=== PATIENT | male | born 1975 | race Caucasian/White ===

== ENCOUNTER 2017-10-29 13:53 | Emergency (ER) | payer BC, OTHER ==
[~2017-10-29 13:53] MED LIST: ISOVUE-370 76%-LOCM 1 ML ONE
[2017-10-29] MEDS ORDERED: Ondansetron HCl/PF 4 MG/2 ML Vial ONE (14:01)
[2017-10-29 14:14] LABS: #Basophils 0.1 thou/uL (0.0-0.2); #Eosinphils 0.1 thou/uL (0.0-0.7); #Lymphocytes 2.3 thou/uL (1.20-3.40); #Monocytes 0.6 thou/uL (0.11-0.59); #Neutrophils 11.4 thou/uL (1.40-6.50); %Basophils 0.8 % (0.0-1.0); %Eosinophils 0.7 % (0.0-10.0); %Monocytes 4.4 % (0.0-10.0); %Neutrophils 78.1 % (42.0-75.0); Hemoglobin 15.5 g/dL (14.0-18.0); Mean Corpuscular HGB CONC 34.3 g/dL (32.0-36.0); Mean Corpuscular Hemoglobin 33.2 pg (27.0-31.0); Mean Corpuscular Volume 96.8 fL (78.0-98.0); Platelet Count 282 thou/uL (130-400); RBC Distribution Width 11.7 % (11.5-14.5); Red Blood Cell (RBC) Count 4.67 mill/uL (4.70-6.10); White Blood Cell (WBC) Count 14.6 thou/uL (4.8-10.8)
[2017-10-29 14:20] LABS: INR-International Normal Ratio 1.2; PTT 26.8 SEC (22.9-36.1); Prothrombin Time 15.3 SEC (12.0-14.7)
[2017-10-29 14:42] LABS: ALT (SGPT) 40 U/L (8-55); AST (SGOT) 40 U/L (5-34); Albumin 4.9 g/dL (3.5-5.0); Alkaline Phosphatase 69 U/L (40-150); Anion Gap 29 mmol/L (10-20); BUN (Urea Nitrogen) 18 mg/dL (8.9-20.6); Bilirubin, Total 0.4 mg/dL (0.2-1.2); Calc. Creatinine Clearance 0 mL/min (70-130); Carbon Dioxide 13 mmol/L (22-29); Chloride 104 mmol/L (98-107); Estimated GFR-MDRD 54; Globulin 4.1 g/dL (2.4-3.5); Glucose 137 mg/dL (70-105); Lipase 34 U/L (8-78); Potassium 4.3 mmol/L (3.5-5.1); Sodium 142 mmol/L (136-145)
[2017-10-29 14:49] LABS: CKMB 2.4 ng/mL (0-6.6); Troponin I Less than 0.010 ng/mL (< 0.028)
[2017-10-29] MEDS ORDERED: Adacel (T-DAP) 0.5 ML VIAL ONE (14:50)
[2017-10-29] MEDS ORDERED: Ondansetron ODT 4 MG TAB ONE (15:05)
[2017-10-29] MEDS ORDERED: Morphine 4 MG/ML VIAL ONE (15:11)
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
[2017-10-29] MEDS ORDERED: VALPROATE SODIUM IVPB SCH (16:15)
[2017-10-29] MEDS ORDERED: SODIUM CHLORIDE 0.9% IVPB SCH (16:15)
--- NOTE | 2017-11-02 13:46 | EKG ---
Test Reason : Blood Pressure : / mmHG Vent. Rate : 142 BPM Atrial Rate : 142 BPM P-R Int : 144 ms QRS Dur : 074 ms QT Int : 256 ms P-R-T Axes : 058 014 086 degrees QTc Int : 393 ms Sinus tachycardia Nonspecific ST and T wave abnormality Abnormal ECG Confirmed by VIRI BAIRD, JULIA ([id number]), publications editor SOLA MITTAL ([id number]) on 11/02/2017 1:45:28 PM Referred By: Confirmed By:JULIA MEREDITH MD
== END 2017-10-29 17:45 | disposition home or self-care (01) ==
LOC: ERS 13:53
DX: S32.029A Unspecified fracture of second lumbar vertebra, initial encounter for closed fracture (principal); G40.909 Epilepsy, unspecified, not intractable, without status epilepticus; V59.9XXA Occupant (driver) (passenger) of pick-up truck or van injured in unspecified traffic accident, initial encounter; Y99.0 Civilian activity done for income or pay; Z23 Encounter for immunization
CPT/HCPCS: 70450; 71045; 71260; 72125; 74177; 80053; 80164; 82553; 83690; 84484; 85025; 85610; 85730; 90471; 90715; 93005; 96361; 96365; 96374; 96375; G0390; J2270; J2405; J7050; L0639; Q0162

== ENCOUNTER 2017-11-14 11:18 | Outpatient (CLI) | payer OTHER ==
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
== END 2017-11-14 11:19 | disposition home or self-care (01) ==
LOC: TBSIIMAG 11:18
PROVIDERS: ATTEND Surgery
DX: S32.021D Stable burst fracture of second lumbar vertebra, subsequent encounter for fracture with routine healing (principal)
CPT/HCPCS: 72100

== ENCOUNTER 2017-12-26 09:22 | Outpatient (CLI) | payer OTHER ==
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
== END 2017-12-26 09:23 | disposition home or self-care (01) ==
LOC: TBSIIMAG 09:22
PROVIDERS: ATTEND Surgery
DX: M48.56XA Collapsed vertebra, not elsewhere classified, lumbar region, initial encounter for fracture (principal); M53.86 Other specified dorsopathies, lumbar region
CPT/HCPCS: 72100

== ENCOUNTER 2018-03-13 13:01 | Outpatient (CLI) | payer OTHER ==
--- NOTE | 2018-03-13 14:02 | RAD ---
TWO VIEWS LUMBOSACRAL SPINE: Comparison: 12-26-17 History: Low back pain. FINDINGS: Two views of the lumbosacral spine shows stable wedging of the L1, L2, and L3 vertebral bodies. No magdaleno bluxation is seen. Mild degenerative changes are seen throughout the lumbar spine. IMPRESSION: Stable exam. POS: [facility]
== END 2018-03-13 13:02 | disposition home or self-care (01) ==
LOC: TBSIIMAG 13:01
PROVIDERS: ATTEND Surgery
DX: M54.5 Low back pain (principal)
CPT/HCPCS: 72100

== ENCOUNTER 2018-10-03 10:57 | Outpatient (CLI) | payer BC ==
--- NOTE | 2018-10-03 11:22 | RAD ---
CHEST TWO VIEWS: HISTORY: Productive cough for six weeks. COMPARISON: 10/29/2017 FINDINGS: Two views of the chest show normal sized cardiomediastinal silhouette. There is no evidence of consol idation, mass, or pleural effusion. The bones are unremarkable. IMPRESSION: No evidence of acute cardiopulmonary disease. POS: [facility]
== END 2018-10-03 10:58 | disposition home or self-care (01) ==
LOC: SCSRAD 10:57
PROVIDERS: ATTEND Family Medicine
DX: R05 Cough (principal)
CPT/HCPCS: 71046

== ENCOUNTER 2018-10-03 15:56 | Outpatient (CLI) | payer BC | END 2018-10-03 15:57 | disposition home or self-care (01) | LOC: CTENTCT 15:56 | PROVIDERS: ATTEND Otolaryngology Plastic Surgery within the Head & Neck | DX: J32.9 Chronic sinusitis, unspecified (principal) | CPT/HCPCS: 70486; 71046 ==

== ENCOUNTER 2018-11-16 02:20 | Observation (INO) | payer BC ==
[2018-11-16 05:03] VITALS: BMI 40.4
[2018-11-16] MEDS ORDERED: Non-Formulary Item 1 EACH (Icosapent Ethyl [Vascepa] 1 GM) PO SCH (08:00)
[2018-11-16] MEDS ORDERED: HYDROcodone/Acetaminophen 5/325 mg Tablet PO PRN (08:52)
[2018-11-16] MEDS ORDERED: Senokot S 8.6-50 MG TAB PO PRN (08:52)
[2018-11-16] MEDS ORDERED: Acetaminophen 325 MG TAB PO PRN (08:52)
[2018-11-16] MEDS ORDERED: Sodium Chloride 0.9% 1,000 ML IV SCH (09:00)
[2018-11-16] MEDS ORDERED: AZATHIOPRINE 75 MG PO SCH (09:00)
[2018-11-16] MEDS ORDERED: Famotidine 20 MG TAB PO SCH (09:00)
[2018-11-16] MEDS ORDERED: azaTHIOprine 50 MG TAB PO SCH (09:00)
[2018-11-16] MEDS ORDERED: PHENYTOIN SODIUM 300 MG PO SCH (09:00)
[2018-11-16] MEDS ORDERED: Allopurinol 300 MG TAB PO SCH (09:00)
[2018-11-16 09:33] LABS: #Lymphocytes 0.9 thou/uL (1.20-3.40); #Monocytes 0.6 thou/uL (0.11-0.59); #Neutrophils 6.1 thou/uL (1.40-6.50); %Basophils 0.3 % (0.0-1.0); %Eosinophils 0.3 % (0.0-10.0); %Lymphocytes 12.3 % (21.0-51.0); %Monocytes 7.4 % (0.0-10.0); %Neutrophils 79.7 % (42.0-75.0); Hemoglobin 12.6 g/dL (14.0-18.0); Mean Corpuscular HGB CONC 33.5 g/dL (32.0-36.0); Mean Corpuscular Hemoglobin 34.9 pg (27.0-31.0); Mean Platelet Volume 7.2 fL (7.4-10.4); Platelet Count 208 thou/uL (130-400); RBC Distribution Width 12.9 % (11.5-14.5); Red Blood Cell (RBC) Count 3.63 mill/uL (4.70-6.10); White Blood Cell (WBC) Count 7.6 thou/uL (4.8-10.8)
[2018-11-16 09:46] LABS: ALT (SGPT) 18 U/L (8-55); AST (SGOT) 15 U/L (5-34); Albumin 4.2 g/dL (3.5-5.0); Alkaline Phosphatase 85 U/L (40-150); Anion Gap 11 mmol/L (10-20); BUN (Urea Nitrogen) 10 mg/dL (8.9-20.6); Bilirubin, Total 0.4 mg/dL (0.2-1.2); Calc. Creatinine Clearance 244 mL/min (70-130); Calcium 9.1 mg/dL (7.8-10.44); Carbon Dioxide 28 mmol/L (22-29); Chloride 104 mmol/L (98-107); Estimated GFR-MDRD Greater than 90; Globulin 2.6 g/dL (2.4-3.5); Glucose 92 mg/dL (70-105); Potassium 3.7 mmol/L (3.5-5.1); Protein, Total 6.8 g/dL (6.0-8.3); Sodium 139 mmol/L (136-145)
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
[2018-11-16] MEDS ORDERED: carBAMazepine 200 MG TAB PO SCH ×2 (11:00→21:00)
[2018-11-16] MEDS: Chlorhexidine Gluconate 15 ML UDCUP SSP SCH ×2 (11:12→14:39)
[2018-11-16 11:52] VITALS: TEMP 98.5
[2018-11-16 16:09] VITALS: BP 117/68
[2018-11-16] MEDS ORDERED: Icosapent Ethyl [Vascepa] 1 GM PO SCH (17:00)
[2018-11-16] MEDS ORDERED: Simvastatin 5 MG TAB PO SCH (21:00)
[2018-11-16] MEDS ORDERED: Pravastatin Sodium 20 MG TAB PO SCH (21:00)
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
== END 2018-11-16 18:04 | disposition home or self-care (01) ==
LOC: ERS 02:20 → 2SE 02:54
PROVIDERS: ADMIT Internal Medicine; ATTEND Internal Medicine
DX: G40.409 Other generalized epilepsy and epileptic syndromes, not intractable, without status epilepticus (principal); M10.9 Gout, unspecified; E78.5 Hyperlipidemia, unspecified; K51.90 Ulcerative colitis, unspecified, without complications; Z79.899 Other long term (current) drug therapy
CPT/HCPCS: 36415; 80053; 80185; 85025; 96360; 96361; 99284; G0378; J7500

== ENCOUNTER 2018-12-15 13:32 | Outpatient (CLI) | payer OTHER ==
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
== END 2018-12-15 13:33 | disposition home or self-care (01) ==
LOC: TBSIIMAG 13:32
PROVIDERS: ATTEND Family Medicine
DX: S32.010D Wedge compression fracture of first lumbar vertebra, subsequent encounter for fracture with routine healing (principal); S32.020D Wedge compression fracture of second lumbar vertebra, subsequent encounter for fracture with routine healing; S32.030D Wedge compression fracture of third lumbar vertebra, subsequent encounter for fracture with routine healing; M47.817 Spondylosis without myelopathy or radiculopathy, lumbosacral region; M48.07 Spinal stenosis, lumbosacral region; M51.87 Other intervertebral disc disorders, lumbosacral region
CPT/HCPCS: 72148

== ENCOUNTER 2022-02-22 06:56 | Day surgery (SDC) | payer BC ==
[2022-02-19 11:39] VITALS: BMI 40.6
[2022-02-22] MEDS ORDERED: Bacitracin Zinc Ointment 30 gm TUBE ONE (08:41)
[2022-02-22] MEDS ORDERED: Bupivacaine HCl 0.5%/Epinephrine 1:200,000/PF 30 ml Vial ONE (08:41)
[2022-02-22] MEDS ORDERED: Lidocaine 2% PF 5 ML VIAL ONE (08:42)
[2022-02-22] MEDS ORDERED: Fentanyl 250 MCG/5 ML VIAL ONE (08:44)
[2022-02-22] MEDS ORDERED: Midazolam HCl 2 mg/2 ml Vial ONE (08:44)
[2022-02-22] MEDS ORDERED: Ondansetron PF 4 MG/2 ML Vial ONE (08:47)
[2022-02-22] MEDS ORDERED: PROPOFOL 200 MG/20 ML VIAL ONE (08:47)
[2022-02-22] MEDS ORDERED: Dexamethasone 20 MG/5 ML VIAL ONE (08:47)
[2022-02-22] MEDS ORDERED: Rocuronium Bromide 10 MG/ML (10ML VIAL) ONE (08:47)
[2022-02-22] MEDS ORDERED: Sodium Chloride 0.9% 100 ML ONE (08:55)
[2022-02-22] MEDS ORDERED: cefOXitin 2 GM VIAL ONE (08:55)
[2022-02-22] MEDS ORDERED: SUGAMMADEX SODIUM 200 MG/2 ML VIAL ONE (09:33)
[2022-02-22] MEDS ORDERED: Morphine 4 MG/ML VIAL ONE (10:17)
== END 2022-02-22 11:46 | disposition home or self-care (01) ==
LOC: SDC 06:56
PROVIDERS: ATTEND Surgery
PROC: 0HB9XZZ Excision of Perineum Skin, External Approach (ICD-10-PCS; principal; 2022-02-22)
PROC: 0D8R0ZZ Division of Anal Sphincter, Open Approach (ICD-10-PCS; principal; 2022-02-22)
DX: K60.1 Chronic anal fissure (principal); K64.4 Residual hemorrhoidal skin tags; K51.90 Ulcerative colitis, unspecified, without complications; J45.909 Unspecified asthma, uncomplicated; M10.9 Gout, unspecified; G89.29 Other chronic pain; M54.50 Low back pain, unspecified; G47.33 Obstructive sleep apnea (adult) (pediatric); E66.9 Obesity, unspecified; Z68.41 Body mass index [BMI] 40.0-44.9, adult; Z79.620 Long term (current) use of immunosuppressive biologic; Z79.899 Other long term (current) drug therapy
CPT/HCPCS: 88304; 93005; 93010; J0694; J1100; J2001; J2250; J2270; J2405; J2704; J3010; J3490

== ENCOUNTER 2022-03-22 10:21 | Outpatient (CLI) | payer BC | END 2022-03-22 10:22 | disposition home or self-care (01) | LOC: DTY/OP 10:21 | PROVIDERS: ATTEND Surgery | DX: E66.01 Morbid (severe) obesity due to excess calories (principal) | CPT/HCPCS: 97802 ==

== ENCOUNTER 2022-05-21 16:36 | Outpatient (CLI) | payer BC ==
[2022-05-21 17:03] LABS: #Basophils 0.1 10x3/uL (0.0-0.2); #Eosinphils 0.2 10x3/uL (0.0-0.5); #Monocytes 1.4 10x3/uL (0.0-1.1); #Neutrophils 5.8 10x3/uL (1.5-8.4); %Basophils 0.8 % (0.0-2.0); %Eosinophils 2.2 % (0.0-6.0); %Lymphocytes 27.6 % (18.0-47.0); %Monocytes 13.1 % (0.0-10.0); %Neutrophils 55.9 % (40.0-75.0); Hemoglobin 15.6 g/dL (13.5-17.5); Mean Corpuscular HGB CONC 33.3 g/dL (32.0-36.0); Mean Corpuscular Hemoglobin 31.8 pg (27.0-33.0); Mean Corpuscular Volume 95.5 fl (81.2-95.1); Mean Platelet Volume 11.1 fl (7.4-10.4); Platelet Count 202 10x3/uL (150-450); RBC Distribution Width 13.1 % (11.5-14.5); White Blood Cell (WBC) Count 10.4 10x3/uL (3.5-10.5)
[2022-05-21 17:27] LABS: ALT (SGPT) 42 U/L (8-55); AST (SGOT) 40 U/L (5-34); Albumin 4.2 g/dL (3.5-5.0); Alkaline Phosphatase 38 U/L (40-110); Anion Gap 17 mmol/L (10-20); BUN (Urea Nitrogen) 18 mg/dL (8.9-20.6); Bilirubin, Total 0.7 mg/dL (0.2-1.2); Calc. Creatinine Clearance 0 mL/min (70-130); Calcium 9.6 mg/dL (7.8-10.44); Carbon Dioxide 23 mmol/L (22-29); Chloride 103 mmol/L (98-107); Estimated GFR 99; Globulin 2.8 g/dL (2.4-3.5); Glucose 79 mg/dL (70-105); Potassium 4.5 mmol/L (3.5-5.1); Sodium 138 mmol/L (136-145)
== END 2022-05-21 16:37 | disposition home or self-care (01) ==
LOC: LABBT 16:36
PROVIDERS: ATTEND Surgery
DX: Z01.818 Encounter for other preprocedural examination (principal); E66.01 Morbid (severe) obesity due to excess calories
CPT/HCPCS: 80053; 85025; 93005; 93010

== ENCOUNTER 2022-08-19 09:42 | Day surgery (SDC) | payer BC ==
[~2022-08-19 09:42] MED LIST changes: -ISOVUE-370 76%-LOCM 1 ML ONE; +Ondansetron PF 4 MG/2 ML Vial IVP PRN; +Sodium Chloride 0.9% 1,000 ML IV SCH
[2022-08-19 10:29] VITALS: BP 117/68; TEMP 97.6
== END 2022-08-19 16:22 | disposition home or self-care (01) ==
LOC: ONC/OP 09:42
PROVIDERS: ATTEND Surgery
DX: E86.0 Dehydration (principal); Z88.6 Allergy status to analgesic agent
CPT/HCPCS: 96365; J3411; J7050

== ENCOUNTER 2022-10-06 15:03 | Outpatient (CLI) | payer BC | END 2022-10-06 15:04 | disposition home or self-care (01) | LOC: SCSRAD 15:03 | PROVIDERS: ATTEND Family Medicine | DX: R07.89 Other chest pain (principal) ==

== ENCOUNTER 2024-11-12 10:57 | Outpatient (CLI) | payer BC | END 2024-11-12 10:58 | disposition home or self-care (01) | LOC: BICRAD 10:57 | PROVIDERS: ATTEND Family Medicine | DX: R07.9 Chest pain, unspecified (principal) ==